=== PATIENT | female | born 1980 | race African-American/Black ===

== ENCOUNTER 2025-03-08 04:10 | Emergency (ER) | payer MEDICARE, OTHER ==
[~2025-03-08] VITALS: Ht 165.1 cm; Wt 63.5 kg
[2025-03-08 04:17] VITALS: BP 131/72; O2SAT 100
[2025-03-08] MEDS ORDERED: ACETAMINOPHEN 500 MG TABLET ONE (05:06)
[2025-03-08] MEDS ORDERED: LORATADINE 10 MG TABLET ONE (05:07)
[2025-03-08] MEDS: LORATADINE 10 MG TABLET PO SCH (05:09)
[2025-03-08] MEDS: ACETAMINOPHEN 500 MG TABLET PO ONE (05:09)
[2025-03-08 05:17] LABS: PLATELET COUNT (AUTO) 422 K/uL (179-408); RED BLOOD CELL COUNT(AUTO) 3.46 MIL/uL (3.63-4.92); RED CELL DISTRIBUTION WIDTH 15.4 % (12.3-17.7); WHITE BLOOD COUNT (AUTO) 8.5 K/uL (3.8-11.8)
[2025-03-08 05:24] LABS: CREATININE 0.6 mg/dL (0.6-1.3); SODIUM SERUM 135 mmol/L (136-145); UREA NITROGEN, BLOOD 11 mg/dL (7-18)
[2025-03-08 05:31] LABS: ASPARTATE AMINOTRANSFERASE 13 U/L (15-37); TOTAL PROTEIN, SERUM 7.7 g/dL (6.4-8.2)
== END 2025-03-08 05:18 | disposition left against medical advice (07) ==
LOC: ER 04:34
DX: R07.89 Other chest pain (principal); F39 Unspecified mood [affective] disorder; Z88.7 Allergy status to serum and vaccine
CPT/HCPCS: 36415; 84484; 85025; 85730; A4606; A4663; A9150